=== PATIENT | female | born 1945 | race Two or more races ===

== ENCOUNTER 2022-09-01 13:29 | Emergency (ER) | payer OTHER ==
[~2022-09-01] VITALS: Ht 149.9 cm; Wt 57.2 kg
== END 2022-09-01 18:28 | disposition home or self-care (01) ==
LOC: ER
DX: L03.319 Cellulitis of trunk, unspecified (principal); L02.219 Cutaneous abscess of trunk, unspecified; Z88.2 Allergy status to sulfonamides; Z88.8 Allergy status to other drugs, medicaments and biological substances